=== PATIENT | female | born 1985 | race Caucasian/White ===

== ENCOUNTER 2019-03-01 12:33 | Emergency (ER) | payer SELFPAY ==
[~2019-03-01] VITALS: Ht 147.3 cm; Wt 72.6 kg
[2019-03-01 13:40] LABS: COLOR,URINE RED; GLUCOSE, URINE (UA) NEGATIVE (NEGATIVE); KETONES,URINE TRACE (NEGATIVE); PROTEIN,URINE 3+ (NEGATIVE)
[2019-03-01 13:41] LABS: CLARITY,URINE BLOODY; LEUKOCYTE ESTERASE ,URINE TRACE (NEGATIVE); NITRITE,URINE NEGATIVE (NEGATIVE)
[2019-03-01 13:42] LABS: BACTERIA,URINE FEW /HPF; BILIRUBIN,URINE 1+ (NEGATIVE); RBC,URINE TNTC /HPF
[2019-03-01] MEDS ORDERED: PHENAZOPYRIDINE 100 MG (PYRIDIUM) TABLET PO ONE (13:45)
[2019-03-01] MEDS ORDERED: NITR-65 PO (13:51)
[2019-03-01 13:58] VITALS: BP 136/91
--- NOTE | 2019-03-01 14:25 | ED Abdominal Pain ---
General Chief Complaint: [facility]ALTH BENEFITS SPECIALIST Stated Complaint: VAGINAL BLEEDING Nursing Triage Note: VAGINAL BLEEDING X 2 WEEKS, HAS NOT CONTACTED DR. HAINES. HER NORMAL MENSTRUAL CYCLE IS EVERY 2 MONTHS SHE STATES. Sepsis Screen: No Definite Risk Source of Information: Patient Exam Limitations: No Limitations History of Present Illness Date Seen by Provider: Mar 01, 2019 Time Seen by Provider: 12:10 Initial Comments Patient is a 33-year-old G10, P0 female with history of dysfunctional uterine bleeding multiple miscarriages and prior left ectopic with tubal oophorectomy who presents with vaginal bleeding for the past 2 weeks with heavy vaginal bleeding for the past several days with large clots passed the past 2 days. Patient states that she has irregular menstrual periods. Denies dizziness, lightheadedness, chest pain or shortness of breath. Does report dysuria which area. No fever chills, sweats. No pelvic and flank no other symptoms. No medications or therapies taken. Patient's has not been evaluated by her PCP her guest history clerk for her current symptoms. Timing/Duration: Getting Worse, Other (2 weeks) Severity/Quality: Moderate Radiation: No Radiation Associated Symptoms: Denies Symptoms Allergies and Home Medications Allergies Coded Allergies: strawberry (Verified Allergy, Mild, Nausea, 03/01/19) Home Medications Nitrofurantoin Monohyd/M-Cryst 100 Mg Capsule, 1 TAB PO BID Prescribed by: OLIVIA RODRÍGUEZ on 03/01/19 1351 Patient Home Medication List Home Medication List Reviewed: Yes Review of Systems Review of Systems Constitutional: see HPI EENTM: See HPI Respiratory: See HPI Cardiovascular: See HPI Gastrointestinal: See HPI Genitourinary: See HPI Musculoskeletal: see HPI Past Oyamsbd-Lmgufq-Dedewz Hx Past Med/Social Hx: Reviewed Nursing Past Med/Soc Hx Patient Social History Alcohol Use: Denies Use Recreational Drug Use: No Smoking Status: Current Everyday Smoker Type Used: Cigarettes 2nd Hand Smoke Exposure: Yes Recent Foreign Travel: No Contact w/Someone Who Travel: No Recent Infectious Disease Expo: No Recent Hopitalizations: No Physical Abuse: No Sexual Abuse: No Mistreated: No Fear: No Seasonal Allergies Seasonal Allergies: No Past Medical History Surgeries: No Respiratory: No Cardiac: No Neurological: No : No Female Reproductive Disorders: Ovarian Cyst Sexually Transmitted Disease: No HIV/AIDS: No Genitourinary: No Gastrointestinal: No Musculoskeletal: No Endocrine: No HEENT: No Cancer: No Psychosocial: No Integumentary: No Blood Disorders: No Physical Exam Vital Signs Vital Signs - First Documented 03/01/19 12:52 Temp 98.0 Pulse 85 Resp 18 B/P (MAP) 136/91 (106) Pulse Ox 95 O2 Delivery Room Air Capillary Refill : Less Than 3 Seconds Height/Weight/BMI Height: 4'10.00" Weight: 160lbs. oz. [id number]; BMI Method:Stated General Appearance: WD/WN, no apparent distress HEENT: PERRL/EOMI, normal ENT inspection Neck: non-tender, full range of motion, supple Cardiovascular: regular rate, rhythm Gastrointestinal: non tender, soft Extremities: normal range of motion, non-tender Back: normal inspection, no CVA tenderness Progress/Results/Core Measures Results/Orders Lab Results Laboratory Tests Test 03/01/19 13:20 Range/Units Urine Color RED H Urine Clarity BLOODY H Urine pH 6.0 5-9 Urine Specific Stryker 1.025 H 1.016-1.022 Urine Protein 3+ H NEGATIVE Urine Glucose (UA) NEGATIVE NEGATIVE Urine Ketones TRACE H NEGATIVE Urine Nitrite NEGATIVE NEGATIVE Urine Bilirubin 1+ H NEGATIVE Urine Urobilinogen 4.0 NORMAL MG/DL Urine Leukocyte Esterase TRACE H NEGATIVE Urine RBC (Auto) 3+ H NEGATIVE Urine RBC TNTC H /HPF Urine WBC 2-5 /HPF Urine Squamous Epithelial Cells 2-5 /HPF Urine Crystals NONE /LPF Urine Bacteria FEW H /HPF Urine Casts NONE /LPF Urine Mucus NEGATIVE /LPF Urine Culture Indicated YES Urine Test NEGATIVE NEGATIVE My Orders Orders - OLIVIA RODRÍGUEZ DO Hcg,Qualitative Urine (03/01/19 12:50) Ua Culture If Indicated (03/01/19 12:50) Phenazopyridine Tablet (Pyridium Tablet) (03/01/19 13:45) Urine Culture (03/01/19 13:20) Medications Given in ED Current Medications Medications Dose Ordered Sig/Joel Route Start Time Stop Time Status Last Admin Dose Admin Phenazopyridine HCl 200 mg ONCE ONCE PO 03/01/19 13:45 03/01/19 13:46 DC 03/01/19 13:47 200 MG Vital Signs/I&O 03/01/19 12:52 Temp 98.0 Pulse 85 Resp 18 B/P (MAP) 136/91 (106) Pulse Ox 95 O2 Delivery Room Air Blood Pressure Mean: 106 Departure Communication (Admissions) Vital signs stable. No constitutional symptoms. Urine negative. Antibiotics prescribed for dysuria. Ultrasound is not available at this facility. Patient instructed to follow up with HEALTH BENEFITS SPECIALIST for consideration of outpatient ultrasound and management of abnormal bleeding Impression Primary Impression: Dysuria Additional Impression: Dysfunctional uterine bleeding Disposition: HOME, SELF-CARE Condition: Improved Departure-Patient Inst. Add. Discharge Instructions: Please take Macrobid as directed and Azo [id number] for relief of urinary tract symptoms. Follow-up with your [facility] next 1-2 days for further evaluation. All discharge instructions reviewed with patient and/or family. Voiced understanding. Scripts Nitrofurantoin Monohyd/M-Cryst (Macrobid 100 mg Capsule) 100 Mg Capsule 1 TAB PO BID for 10 Days, #20 CAP Prov: OLIVIA RODRÍGUEZ DO 03/01/19 OLIVIA RODRÍGUEZ DO Mar 01, 2019 14:25
== END 2019-03-01 13:59 | disposition home or self-care (01) ==
LOC: ER FS 12:36
DX: N93.8 Other specified abnormal uterine and vaginal bleeding (principal); R30.0 Dysuria; F17.210 Nicotine dependence, cigarettes, uncomplicated; Z91.018 Allergy to other foods; Z90.721 Acquired absence of ovaries, unilateral
CPT/HCPCS: 81000; 84703; 87088; 99283

== ENCOUNTER 2019-03-30 12:40 | Emergency (ER) | payer SELFPAY ==
[~2019-03-30] VITALS: Ht 149.8 cm; Wt 70.0 kg
[~2019-03-30 12:40] MED LIST: NITR-65 PO
[2019-03-30] MEDS ORDERED: ASPIRIN 81 MG CHEW (CHILDREN'S ASA) PO ONE (12:45)
[2019-03-30] MEDS ORDERED: ACETAMINOPHEN 325 MG TABLET PO ONE (13:00)
[2019-03-30] MEDS ORDERED: KETOROLAC 30 MG/ML VIAL IVP ONE (13:00)
[2019-03-30 13:01] LABS: HEMATOCRIT 42 % (35-52); MEAN CORPUSCULAR HEMOGLOBIN 32 PG (25-34); MEAN CORPUSCULAR HGB CONC 33 G/DL (32-36); MEAN CORPUSCULAR VOLUME 97 FL (80-99); WHITE BLOOD COUNT 7.6 10^3/uL (4.3-11.0)
[2019-03-30 13:02] LABS: BASOPHILS % (AUTO) 0 % (0-10); EOSINOPHILS # (AUTO) 0.2 10^3/uL (0.0-0.3); EOSINOPHILS % (AUTO) 3 % (0-10); LYMPHOCYTES # (AUTO) 2.4 X 10^3 (1.0-4.0); LYMPHOCYTES % (AUTO) 31 % (12-44); MEAN PLATELET VOLUME 10.1 FL (7.4-10.4); MONOCYTES # (AUTO) 0.6 X 10^3 (0.0-1.0); MONOCYTES % (AUTO) 8 % (0-12); NEUTROPHILS # (AUTO) 4.4 X 10^3 (1.8-7.8); NEUTROPHILS % (AUTO) 58 % (42-75); PLATELET COUNT 295 10^3/uL (130-400)
--- NOTE | 2019-03-30 13:07 | ED Cardiac General ---
History of Present Illness General Chief Complaint: Chest Pain Stated Complaint: CHEST PAIN History of Present Illness Date Seen by Provider: Mar 30, 2019 Time Seen by Provider: 12:50 Initial Comments The patient is a 33-year-old female with a history of anxiety and no other chronic medical problems. She is a tobacco smoker. She presents with concern for acute on chronic chest discomfort with onset about one week ago. Discomfort localizes to a focal site over her left breast and is characterized as sharp and stabbing and nonradiating, although occasionally it will radiate to her "whole chest" when she is feeling more anxious (though not now). Pain is worse with deep breathing and with activity/movement and in particular is worse with movement of her arms. Associated mild shortness of breath at times when the pain gets worse, though not now. No associated nausea or vomiting, diaphoresis, cough, flank pain, back pain, abdominal pain, dysuria or hematuria, changes in bowel habits. Patient has had numerous prior episodes of quite similar discomfort and in fact it sounds as though she had a full cardiology evaluation completed at this hospital before the takeover by [facility] which was reportedly unremarkable. Allergies and Home Medications Allergies Coded Allergies: strawberry (Verified Allergy, Mild, Nausea, 03/01/19) Home Medications Nitrofurantoin Monohyd/M-Cryst 100 Mg Capsule, 1 TAB PO BID Prescribed by: OLIVIA RODRÍGUEZ on 03/01/19 1351 Patient Home Medication List Home Medication List Reviewed: Yes Review of Systems Review of Systems Constitutional: see HPI All Other Systems Reviewed Negative Unless Noted: Yes (Negative excepted noted.) Past Xujddze-Ujyiqt-Sgrwjm Hx Past Med/Social Hx: Reviewed Nursing Past Med/Soc Hx Patient Social History Type Used: Cigarettes 2nd Hand Smoke Exposure: Yes Recent Hopitalizations: No Physical Abuse: No Sexual Abuse: No Mistreated: No Fear: No Seasonal Allergies Seasonal Allergies: No Past Medical History Surgeries: No Respiratory: No Cardiac: No Neurological: No Female Reproductive Disorders: Ovarian Cyst Sexually Transmitted Disease: No HIV/AIDS: No Genitourinary: No Gastrointestinal: No Musculoskeletal: No Endocrine: No HEENT: No Cancer: No Psychosocial: No Integumentary: No Blood Disorders: No Family Medical History Reviewed Nursing Family Hx Physical Exam Vital Signs Vital Signs - First Documented 03/30/19 03/30/19 12:40 13:06 Temp 36.2 Pulse 72 Resp 18 B/P (MAP) 137/86 (103) Pulse Ox 98 O2 Delivery Room Air Capillary Refill : Height, Weight, BMI Height: 4'10.00" Weight: 160lbs. oz. [id number]; BMI Method:Stated General Appearance: No Apparent Distress Other comments This is a younger female appearing nontoxic and in no acute distress. Head is normocephalic and atraumatic. Neck is supple and nontender. Oropharynx is moist. Lungs are clear to auscultation in all stations. There is normal S1 and S2 without rubs or gallops and capillary refill is appropriate, less than 2 seconds globally. Abdomen is soft, nontender and nondistended. Skin is warm and dry without cyanosis, clubbing or edema. Psychiatrically, the patient demonstrates appropriate mood and affect and is alert. Progress/Results/Core Measures Results/Orders Lab Results Laboratory Tests Test 03/30/19 12:45 03/30/19 12:55 Range/Units White Blood Count 7.6 4.3-11.0 10^3/uL Red Blood Count 4.39 4.35-5.85 10^6/uL Hemoglobin 14.0 11.5-16.0 G/DL Hematocrit 42 35-52 % Mean Corpuscular Volume 97 80-99 FL Mean Corpuscular Hemoglobin 32 25-34 PG Mean Corpuscular Hemoglobin Concent 33 32-36 G/DL Red Cell Distribution Width 12.0 10.0-14.5 % Platelet Count 295 130-400 10^3/uL Mean Platelet Volume 10.1 7.4-10.4 FL Neutrophils (%) (Auto) 58 42-75 % Lymphocytes (%) (Auto) 31 12-44 % Monocytes (%) (Auto) 8 0-12 % Eosinophils (%) (Auto) 3 0-10 % Basophils (%) (Auto) 0 0-10 % Neutrophils # (Auto) 4.4 1.8-7.8 X 10^3 Lymphocytes # (Auto) 2.4 1.0-4.0 X 10^3 Monocytes # (Auto) 0.6 0.0-1.0 X 10^3 Eosinophils # (Auto) 0.2 0.0-0.3 10^3/uL Basophils # (Auto) 0.0 0.0-0.1 10^3/uL Prothrombin Time 13.2 12.2-14.7 SEC INR Comment 1.0 0.8-1.4 Activated Partial Thromboplast Time 28 24-35 SEC Sodium Level 138 135-145 MMOL/L Potassium Level 4.0 3.6-5.0 MMOL/L Chloride Level 103 98-107 MMOL/L Carbon Dioxide Level 25 21-32 MMOL/L Anion Gap 13 5-14 MMOL/L Blood Urea Nitrogen 13 7-18 MG/DL Creatinine 0.98 0.60-1.30 MG/DL Estimat Glomerular Filtration Rate > 60 BUN/Creatinine Ratio 13 Glucose Level 99 70-105 MG/DL Calcium Level 9.7 8.5-10.1 MG/DL Corrected Calcium 8.5-10.1 MG/DL Total Bilirubin 0.3 0.1-1.0 MG/DL Aspartate Amino Transf (AST/SGOT) 13 5-34 U/L Alanine Aminotransferase (ALT/SGPT) 10 0-55 U/L Alkaline Phosphatase 77 40-136 U/L Troponin I < 0.30 <0.30 NG/ML Total Protein 7.5 6.4-8.2 GM/DL Albumin 4.6 H 3.2-4.5 GM/DL Serum Test, Qualitative NEGATIVE NEGATIVE My Orders Orders - MICHAEL SAUCEDO MD Cbc With Automated Diff (03/30/19 12:42) Comprehensive Metabolic Panel (03/30/19 12:42) Troponin I (03/30/19 12:42) Ekg Tracing (03/30/19 12:42) Protime With Inr (03/30/19 12:42) Partial Thromboplastin Time (03/30/19 12:42) Chest 1 View Ap/Pa Only (03/30/19 12:42) Aspirin Chewable Tablet (Baby Aspirin Ch (03/30/19 12:45) Hcg,Qualitative Serum (03/30/19 13:00) Ketorolac Injection (Toradol Injection) (03/30/19 13:00) Acetaminophen Tablet/Caplet (Tylenol T (03/30/19 13:00) Medications Given in ED Current Medications Medications Dose Ordered Sig/Joel Route Start Time Stop Time Status Last Admin Dose Admin Acetaminophen 975 mg ONCE ONCE PO 03/30/19 13:00 03/30/19 13:02 DC 03/30/19 13:10 975 MG Aspirin 324 mg ONCE ONCE PO 03/30/19 12:45 03/30/19 12:46 DC 03/30/19 12:57 324 MG Ketorolac Tromethamine 30 mg ONCE ONCE IVP 03/30/19 13:00 03/30/19 13:02 DC 03/30/19 13:10 30 MG Vital Signs/I&O 03/30/19 03/30/19 12:40 13:06 Temp 36.2 Pulse 72 Resp 18 B/P (MAP) 137/86 (103) Pulse Ox 98 O2 Delivery Room Air Progress Progress Note : Time: 13:07 Progress Note Clinical examination reassuring. 33-year-old smoker who presents with 1 week of acute on chronic quite atypical sharp focal chest discomfort over her left breast. While there is a pleuritic component to discomfort, the patient is Wells low risk for pulmonary embolism and does PERC out. Will check labs and EKG and chest x-ray and will given aspirin as well as medication for discomfort and will then reevaluate. Discussed with the patient and her fianc that if her workup is reassuring and we will most likely be able to clear her to follow up very closely with her primary care physician in the next one-two days. I also counseled her to seek reevaluation by cardiology given episodes of discomfort similar to this one which bother her approximately every 2 weeks to 1 month and have for at least a year or more. They understand and agree with this plan of care. Update 1336: Workup unremarkable and reassuring patient feels better after medication here in the emergency department. We will discharge home with a low- dose steroid burst as well as a course of nonsteroidal anti-inflammatory. Patient is counseled to follow up very closely with her primary in the next 1-2 days and to return immediately to the emergency department if symptoms worsen or if other new symptoms of concern develop. Patient is also going to be referred back to cardiology for reevaluation given chronic chest discomfort. All questions are answered. Comment Sinus rhythm, rate 67, no acute ST elevation or depression, [place] 146, QRS 88, QTC 431, EP interpretation. Departure Impression Primary Impression: Other chest pain Disposition: HOME, SELF-CARE Condition: Improved Departure-Patient Inst. Referrals: ROBERT PINK MD (PCP/Family) Primary Care Physician Patient Instructions: Chest Pain (DC) Scripts Ibuprofen (Ibuprofen) 800 Mg Tablet 800 MG PO Q8H PRN for PAIN, #30 TAB 0 Refills Prov: MICHAEL SAUCEDO MD 03/30/19 Prednisone (Prednisone) 20 Mg Tab 20 MG PO DAILY for 6 Days, #6 TAB 0 Refills Prov: MICHAEL SAUCEDO MD 03/30/19 MICHAEL SAUCEDO MD Mar 30, 2019 13:06
[2019-03-30 13:12] LABS: PROTHROMBIN TIME PATIENT 13.2 SEC (12.2-14.7)
--- NOTE | 2019-03-30 13:17 | Diagnostic Imaging Report ---
INDICATION: Chest pain. COMPARISON: None. FINDINGS: Single frontal view of the chest demonstrates normal heart size and pulmonary vascularity. The lungs are well aerated and clear. No large pleural effusion or pneumothorax is seen. The visualized osseous structures show no acute abnormalities. IMPRESSION: 1. No acute cardiopulmonary process. Dictated by: Dictated on workstation # [id number]
[2019-03-30 13:18] LABS: ALANINE AMINOTRANSFERASE 10 U/L (0-55); ALBUMIN 4.6 GM/DL (3.2-4.5); ALKALINE PHOSPHATASE 77 U/L (40-136); BILIRUBIN,TOTAL 0.3 MG/DL (0.1-1.0); BUN/CREATININE RATIO 13; CALCIUM 9.7 MG/DL (8.5-10.1); CARBON DIOXIDE 25 MMOL/L (21-32); CHLORIDE 103 MMOL/L (98-107); CREATININE SERUM 0.98 MG/DL (0.60-1.30); GFR ESTIMATED > 60; GLUCOSE 99 MG/DL (70-105); SODIUM 138 MMOL/L (135-145); TOTAL PROTEIN 7.5 GM/DL (6.4-8.2)
[2019-03-30] MEDS ORDERED: IBUP-1780 PO (13:39)
[2019-03-30] MEDS ORDERED: PRD20T PO (13:39)
[2019-03-30 13:54] VITALS: BP 130/84
== END 2019-03-30 13:54 | disposition home or self-care (01) ==
LOC: EDUNIT# 12:40 → ER FS 12:41
DX: R07.89 Other chest pain (principal); F41.9 Anxiety disorder, unspecified; F17.210 Nicotine dependence, cigarettes, uncomplicated
CPT/HCPCS: 36415; 71045; 80053; 84484; 84703; 85025; 85610; 85730; 93005; 96374

== ENCOUNTER 2019-04-25 17:14 | Emergency (ER) | payer SELFPAY ==
[~2019-04-25] VITALS: Ht 149.9 cm; Wt 70.5 kg
[~2019-04-25 17:14] MED LIST changes: +IBUP-1780 PO; +PRD20T PO
[2019-04-25] MEDS ORDERED: NITROGLYCERIN 0.4 MG SL TABS BTL 25'S SL PRN (17:30)
[2019-04-25] MEDS ORDERED: ASPIRIN 81 MG CHEW (CHILDREN'S ASA) PO ONE (17:30)
--- NOTE | 2019-04-25 17:31 | ED Chest Pain ---
General Stated Complaint: CHEST PAIN Source: patient Exam Limitations: no limitations History of Present Illness Date Seen by Provider: Apr 25, 2019 Time Seen by Provider: 17:18 Initial Comments Patient presents to ER by private conveyance with her mother and and chief complaint for the past 3 weeks she's been experiencing some intermittent chest pain in the center of her sternum radiating around to both arms sometimes going down her left arm and into her back. She was seen 3 weeks ago and worked up and at that time they set her up with her outpatient operations manager/coordinator appointment and put her on steroids, prednisone which she completed. She was also put on bupropion by her primary care doctor, Dr. iPnk. She does not feel that the bupropion this helped much. She saw the operations manager/coordinator Dr. Gonzales from [place] and he told her that he also thought this might be stress related but set her up for a stress test May 31. She denies a history of indigestion or GERD. She has had a cough with sometimes green sputum. She denies any history of diabetes, hypertension, hyperlipidemia. Her last missed her period was one month ago. She does smoke about a quarter pack of cigarettes per day and has positive familial history for father in his late 30s having a heart attack and brother in his early 30s had a heart attack. She denies any history of IV drug use methamphetamine or cocaine. She said that the pain will come on with mild exertion such as picking up her child sweeping the floor or doing any simple chores or walking upstairs. She has tried ibuprofen for her chest pain but nothing today. She says this particular episode started about 5-10 minutes prior to arrival while picking up a child. Allergies and Home Medications Allergies Coded Allergies: strawberry (Verified Allergy, Mild, Nausea, 03/01/19) Home Medications Ibuprofen 800 Mg Tablet, 800 MG PO Q8H PRN for PAIN Prescribed by: MICHAEL SAUCEDO on 03/30/19 1339 Nitrofurantoin Monohyd/M-Cryst 100 Mg Capsule, 1 TAB PO BID Prescribed by: OLIVIA RODRÍGUEZ on 03/01/19 1351 Prednisone 20 Mg Tab, 20 MG PO DAILY Prescribed by: MICHAEL SAUCEDO on 03/30/19 1339 Patient Home Medication List Home Medication List Reviewed: Yes Review of Systems Review of Systems Constitutional: see HPI; No chills; diaphoresis; No fever EENTM: No Blurred Vision, No Double Vision Respiratory: Cough; Denies Shortness of Air, Denies Wheezing Cardiovascular: See HPI, Chest Pain; Denies Edema, Denies Irregular Heart Rate, Denies Palpitations, Denies Syncope Gastrointestinal: Denies Abdominal Pain, Denies Constipated, Denies Diarrhea, Denies Nausea Genitourinary: Denies Burning, Denies Discharge Musculoskeletal: see HPI Skin: No pruritus, No rash Past Kbhpain-Wfofvq-Kxownq Hx Patient Social History Recreational Drug Use: No Smoking Status: Current Everyday Smoker Type Used: Cigarettes (0.25 ppd) 2nd Hand Smoke Exposure: Yes Recent Hopitalizations: No Seasonal Allergies Seasonal Allergies: No Past Medical History Surgeries: No (salpingectomy) Respiratory: No Cardiac: No Neurological: No Female Reproductive Disorders: Ovarian Cyst Sexually Transmitted Disease: No HIV/AIDS: No Genitourinary: No Gastrointestinal: No Musculoskeletal: No Endocrine: No HEENT: No Cancer: No Psychosocial: No Anxiety, PTSD, Depression Integumentary: No Blood Disorders: No Physical Exam Vital Signs Vital Signs - First Documented 04/25/19 17:18 Temp 36.6 Pulse 80 Resp 25 B/P (MAP) 144/85 (104) Pulse Ox 98 O2 Delivery Room Air Capillary Refill : Height, Weight, BMI Height: 4'10.00" Weight: 160lbs. oz. 72.037479jq; 31.00 BMI Method:Stated General Appearance: WD/WN, Anxious HEENT: PERRL/EOMI, Pharynx Normal, Moist Mucous Membranes Respiratory: No Chest Non Tender (her chest pain is reproduced by direct palpation over the sternum); Lungs Clear, Normal Breath Sounds, No Accessory Muscle Use, No Respiratory Distress Cardiovascular: Regular Rate, Rhythm, No Edema, No Gallop, No JVD, No Murmur, Normal Peripheral Pulses Gastrointestinal: Non Tender, Soft Extremity: Normal Capillary Refill, Normal Inspection, No Pedal Edema Neurologic/Psychiatric: Alert, Oriented x3, No Motor/Sensory Deficits, Other (anxious affect) Skin: Normal Color, Warm/Dry Progress/Results/Core Measures Results/Orders Lab Results Laboratory Tests Test 04/25/19 17:31 04/25/19 17:35 04/25/19 20:16 Range/Units White Blood Count 8.2 4.3-11.0 10^3/uL Red Blood Count 4.23 L 4.35-5.85 10^6/uL Hemoglobin 13.6 11.5-16.0 G/DL Hematocrit 41 35-52 % Mean Corpuscular Volume 96 80-99 FL Mean Corpuscular Hemoglobin 32 25-34 PG Mean Corpuscular Hemoglobin Concent 34 32-36 G/DL Red Cell Distribution Width 12.3 10.0-14.5 % Platelet Count 266 130-400 10^3/uL Mean Platelet Volume 10.5 H 7.4-10.4 FL Neutrophils (%) (Auto) 67 42-75 % Lymphocytes (%) (Auto) 22 12-44 % Monocytes (%) (Auto) 7 0-12 % Eosinophils (%) (Auto) 4 0-10 % Basophils (%) (Auto) 1 0-10 % Neutrophils # (Auto) 5.5 1.8-7.8 X 10^3 Lymphocytes # (Auto) 1.8 1.0-4.0 X 10^3 Monocytes # (Auto) 0.5 0.0-1.0 X 10^3 Eosinophils # (Auto) 0.4 H 0.0-0.3 10^3/uL Basophils # (Auto) 0.0 0.0-0.1 10^3/uL Prothrombin Time 13.2 12.2-14.7 SEC INR Comment 1.0 0.8-1.4 Activated Partial Thromboplast Time 28 24-35 SEC Sodium Level 141 135-145 MMOL/L Potassium Level 4.2 3.6-5.0 MMOL/L Chloride Level 104 98-107 MMOL/L Carbon Dioxide Level 24 21-32 MMOL/L Anion Gap 13 5-14 MMOL/L Blood Urea Nitrogen 9 7-18 MG/DL Creatinine 1.01 0.60-1.30 MG/DL Estimat Glomerular Filtration Rate > 60 BUN/Creatinine Ratio 9 Glucose Level 103 70-105 MG/DL Calcium Level 9.5 8.5-10.1 MG/DL Corrected Calcium 9.2 8.5-10.1 MG/DL Magnesium Level 2.0 1.6-2.4 MG/DL Total Bilirubin 0.3 0.1-1.0 MG/DL Aspartate Amino Transf (AST/SGOT) 14 5-34 U/L Alanine Aminotransferase (ALT/SGPT) 9 0-55 U/L Alkaline Phosphatase 78 40-136 U/L Myoglobin 42.3 10.0-92.0 NG/ML Troponin I < 0.30 < 0.30 <0.30 NG/ML Total Protein 7.3 6.4-8.2 GM/DL Albumin 4.4 3.2-4.5 GM/DL Urine Color YELLOW Urine Clarity CLEAR Urine pH 5.5 5-9 Urine Specific [place] >1.030 1.016-1.022 Urine Protein NEGATIVE NEGATIVE Urine Glucose (UA) NEGATIVE NEGATIVE Urine Ketones NEGATIVE NEGATIVE Urine Nitrite NEGATIVE NEGATIVE Urine Bilirubin NEGATIVE NEGATIVE Urine Urobilinogen 0.2 NORMAL MG/DL Urine Leukocyte Esterase NEGATIVE NEGATIVE Urine RBC (Auto) TRACE H NEGATIVE Urine RBC 2-5 H /HPF Urine WBC NONE /HPF Urine Squamous Epithelial Cells >50 H /HPF Urine Crystals NONE /LPF Urine Bacteria FEW H /HPF Urine Casts NONE /LPF Urine Mucus SMALL H /LPF Urine Culture Indicated NO Urine Opiates Screen NEGATIVE NEGATIVE Urine Oxycodone Screen NEGATIVE NEGATIVE Urine Methadone Screen NEGATIVE NEGATIVE Urine Propoxyphene Screen NEGATIVE NEGATIVE Urine Barbiturates Screen NEGATIVE NEGATIVE Ur Tricyclic Antidepressants Screen NEGATIVE NEGATIVE Urine Phencyclidine Screen NEGATIVE NEGATIVE Urine Amphetamines Screen NEGATIVE NEGATIVE Urine Methamphetamines Screen NEGATIVE NEGATIVE Urine Benzodiazepines Screen NEGATIVE NEGATIVE Urine Cocaine Screen NEGATIVE NEGATIVE Urine Cannabinoids Screen POSITIVE H NEGATIVE Group A Streptococcus Screen NEGATIVE NEGATIVE My Orders Orders - MIRA RIVAS J Ekg Tracing (04/25/19 17:18) Continuous Ekg Monitoring (04/25/19 17:18) Cbc With Automated Diff (04/25/19 17:28) Magnesium (04/25/19 17:28) Comprehensive Metabolic Panel (04/25/19 17:28) Myoglobin Serum (04/25/19 17:28) Protime With Inr (04/25/19 17:28) Partial Thromboplastin Time (04/25/19 17:28) O2 (04/25/19 17:28) Lipid Panel (04/26/19 06:00) Aspirin Chewable Tablet (Baby Aspirin Ch (04/25/19 17:30) Nitroglycerin 0.4 Mg Btl 25's (Nitrostat (04/25/19 17:30) Ed Iv/Invasive Line Start (04/25/19 17:28) Troponin I Fs (04/25/19 17:28) Chest Pa/Lat (2 View) (04/25/19 17:28) Rapid Strep A Screen (04/25/19 17:28) Ua Culture If Indicated (04/25/19 17:31) Urine Bedside (04/25/19 17:31) Drug Screen Stat (Urine) (04/25/19 17:31) Ketorolac Injection (Toradol Injection) (04/25/19 18:15) Troponin I Fs (04/25/19 20:00) Medications Given in ED Current Medications Medications Dose Ordered Sig/Joel Route Start Time Stop Time Status Last Admin Dose Admin Aspirin 324 mg ONCE ONCE PO 04/25/19 17:30 04/25/19 17:31 DC 04/25/19 17:42 324 MG Ketorolac Tromethamine 30 mg ONCE ONCE IVP 04/25/19 18:15 04/25/19 18:16 DC 04/25/19 18:18 30 MG Nitroglycerin 0.4 mg UD PRN SL 04/25/19 17:30 04/25/19 17:43 0.4 MG Vital Signs/I&O 04/25/19 04/25/19 17:18 17:18 Temp 36.6 Pulse 80 Resp 25 B/P (MAP) 144/85 (104) Pulse Ox 98 O2 Delivery Room Air Room Air Progress Progress Note #1: Time: 17:37 Progress Note Plan to give aspirin and nitroglycerin trial. Her chest pain is reproducible to direct palpation which seems more in line with chest wall pain/musculoskeletal/pleuritic. With her cough it would be peters to get a 2 view chest x-ray to evaluate for bronchitis/pneumonia. She appears very anxious on presentation. She is not hypoxic nor does she claims shortness of breath. She is not tachycardic with a heart rate in the 80s and oxygen saturation of 100% on room air. Well score 0 points. She is not on control although she does smoke which is a risk factor. Myocarditis/pericarditis seems less likely to go on for 3-4 weeks but is a possibility as well. She says several people have strep throat in her household so she would like us to swab her throat for rapid strep screen. Progress Note #2: Time: 17:58 Progress Note Her chest pain is still a 6 out of 10 and was untouched by nitroglycerin. We'll offer her Toradol if her troponin is normal. Heart score is 1 point if her troponin is negative. Low risk; 0.91.7% 30-day MACE. Repeat troponin at 3 hours and if negative, discharge home with outpatient follow-up Initial ECG Impression Date: Apr 25, 2019 Initial ECG Impression Time: 17:19 Initial ECG Rate: 91 Initial ECG Rhythm: Normal Sinus Initial ECG Intervals: Normal Initial ECG Impression: Normal Initial ECG Comparisson: Unchanged Comment Normal sinus rhythm without ST elevation or depression. Diagnostic Imaging Diagonstic Imaging: Xray Plain Films/CT/US/NM/MRI: chest (2v) Comments No acute cardiopulmonary process noted. Two-view chest. NAME: ANGELES NAVARRO [facility] REC#: [id number] PT STATUS: REG ER : 1985 PHYSICIAN: MIRA RIVAS MD ADMIT DATE: 04/25/19/ER FS Draft Date of Exam:04/25/19 CHEST PA/LAT (2 VIEW) CLINICAL INDICATION: Patient with left arm numbness and pain. Patient also has chest pain. EXAM: Chest x-ray PA and lateral views. COMPARISONS: Chest x-ray dated 03/30/2019. FINDINGS: Lungs/pleura: Lungs are clear. There is no pneumothorax. There is no pleural effusion. Mediastinum: Unremarkable. Pulmonary vasculature: Unremarkable. Heart: Unremarkable. Bones/extrathoracic soft tissue: Unremarkable. IMPRESSION: There is no radiographic evidence of acute cardiopulmonary process. Dictated on workstation # [id number] Dict: 04/25/19 1750 Trans: 04/25/19 1800 AS6 [id number] Interpreted by: CHUCK SPENCER MD Electronically signed by: Reviewed: Reviewed by Me Departure Impression Primary Impression: Costal chondritis Disposition: 01 HOME, SELF-CARE Condition: Stable Departure-Patient Inst. Decision time for Depature: 20:55 Referrals: ROBERT PINK MD (PCP/Family) Primary Care Physician Patient Instructions: Costochondritis (DC) Add. Discharge Instructions: Naprosyn one tablet twice a day for the next 2 weeks. Tylenol 1000 g every 8 hours as needed for pain. Keep your follow-up appointment with primary care and cardiology. Scripts Naproxen (Naprosyn) 500 Mg Tablet 500 MG PO BID for 14 Days, #30 TAB 0 Refills Prov: MIRA RIVAS 04/25/19 MIRA RIVAS Apr 25, 2019 17:31
[2019-04-25 17:42] LABS: WHITE BLOOD COUNT 8.2 10^3/uL (4.3-11.0)
[2019-04-25 17:43] LABS: BASOPHILS % (AUTO) 1 % (0-10); EOSINOPHILS # (AUTO) 0.4 10^3/uL (0.0-0.3); EOSINOPHILS % (AUTO) 4 % (0-10); HEMATOCRIT 41 % (35-52); HEMOGLOBIN 13.6 G/DL (11.5-16.0); LYMPHOCYTES # (AUTO) 1.8 X 10^3 (1.0-4.0); LYMPHOCYTES % (AUTO) 22 % (12-44); MEAN CORPUSCULAR HEMOGLOBIN 32 PG (25-34); MEAN CORPUSCULAR HGB CONC 34 G/DL (32-36); MEAN CORPUSCULAR VOLUME 96 FL (80-99); MEAN PLATELET VOLUME 10.5 FL (7.4-10.4); MONOCYTES # (AUTO) 0.5 X 10^3 (0.0-1.0); MONOCYTES % (AUTO) 7 % (0-12); NEUTROPHILS # (AUTO) 5.5 X 10^3 (1.8-7.8); NEUTROPHILS % (AUTO) 67 % (42-75); PLATELET COUNT 266 10^3/uL (130-400); RED CELL DISTRIBUTION WIDTH 12.3 % (10.0-14.5)
[2019-04-25 17:46] LABS: CLARITY,URINE CLEAR; COLOR,URINE YELLOW; PH,URINE 5.5 (5-9)
[2019-04-25 17:47] LABS: BACTERIA,URINE FEW /HPF; BILIRUBIN,URINE NEGATIVE (NEGATIVE); GLUCOSE, URINE (UA) NEGATIVE (NEGATIVE); KETONES,URINE NEGATIVE (NEGATIVE); LEUKOCYTE ESTERASE ,URINE NEGATIVE (NEGATIVE); NITRITE,URINE NEGATIVE (NEGATIVE); PROTEIN,URINE NEGATIVE (NEGATIVE); SQUAMOUS EPITHELIAL CELL,UR >50 /HPF
[2019-04-25 17:52] LABS: PROTHROMBIN TIME PATIENT 13.2 SEC (12.2-14.7)
[2019-04-25 17:53] LABS: AMPHETAMINE SCREEN, URINE NEGATIVE (NEGATIVE); BARBITURATE SCREEN URINE NEGATIVE (NEGATIVE); BENZODIAZEPINES SCREEN URINE NEGATIVE (NEGATIVE); CANNABINOID SCREEN, URINE POSITIVE (NEGATIVE); COCAINE SCREEN URINE NEGATIVE (NEGATIVE); METHADONE STAT NEGATIVE (NEGATIVE); METHAMPHETAMINE SCREEN URINE S NEGATIVE (NEGATIVE); OPIATE SCREEN URINE NEGATIVE (NEGATIVE); OXYCODONE STAT NEGATIVE (NEGATIVE); PROPOXYPHENE STAT NEGATIVE (NEGATIVE); TRICYCLIC ANTIDEPRESSANTS SCRE NEGATIVE (NEGATIVE)
--- NOTE | 2019-04-25 17:58 | NUR ---
Patient reports her pain has not changed after the first dose of nitro. Dr. Ventura notified.
--- NOTE | 2019-04-25 18:00 | Diagnostic Imaging Report ---
CLINICAL INDICATION: Patient with left arm numbness and pain. Patient also has chest pain. EXAM: Chest x-ray PA and lateral views. COMPARISONS: Chest x-ray dated 03/30/2019. FINDINGS: Lungs/pleura: Lungs are clear. There is no pneumothorax. There is no pleural effusion. Mediastinum: Unremarkable. Pulmonary vasculature: Unremarkable. Heart: Unremarkable. Bones/extrathoracic soft tissue: Unremarkable. IMPRESSION: There is no radiographic evidence of acute cardiopulmonary process. Dictated by: Dictated on workstation # [id number]
[2019-04-25 18:02] LABS: CARBON DIOXIDE 24 MMOL/L (21-32); CHLORIDE 104 MMOL/L (98-107); POTASSIUM 4.2 MMOL/L (3.6-5.0); SODIUM 141 MMOL/L (135-145)
[2019-04-25 18:03] LABS: ALANINE AMINOTRANSFERASE 9 U/L (0-55); ALBUMIN 4.4 GM/DL (3.2-4.5); ALKALINE PHOSPHATASE 78 U/L (40-136); BILIRUBIN,TOTAL 0.3 MG/DL (0.1-1.0); BUN/CREATININE RATIO 9; CALCIUM 9.5 MG/DL (8.5-10.1); CREATININE SERUM 1.01 MG/DL (0.60-1.30); GFR ESTIMATED > 60; GLUCOSE 103 MG/DL (70-105); TOTAL PROTEIN 7.3 GM/DL (6.4-8.2)
[2019-04-25] MEDS ORDERED: KETOROLAC 30 MG/ML VIAL IVP ONE (18:15)
[2019-04-25] MEDS ORDERED: NAPR-1071 PO (20:56)
[2019-04-25 21:06] VITALS: BP 129/71
== END 2019-04-25 21:05 | disposition home or self-care (01) ==
LOC: EDUNIT# 17:14 → ER FS 17:15
DX: M94.0 Chondrocostal junction syndrome [Tietze] (principal); F43.10 Post-traumatic stress disorder, unspecified; F41.9 Anxiety disorder, unspecified; F32.9 Major depressive disorder, single episode, unspecified; F17.210 Nicotine dependence, cigarettes, uncomplicated
CPT/HCPCS: 36415; 71046; 80053; 80306; 81000; 83735; 83874; 84484; 84703; 85025; 85610; 85730; 87430; 93005

== ENCOUNTER 2021-10-07 01:45 | Emergency (ER) | payer SELFPAY ==
[~2021-10-07] VITALS: Ht 147.3 cm; Wt 77.6 kg
[~2021-10-07 01:45] MED LIST changes: +NAPR-1071 PO
[2021-10-07 02:09] LABS: BASOPHILS % (AUTO) 0 % (0-10); EOSINOPHILS # (AUTO) 0.2 10^3/uL (0.0-0.3); EOSINOPHILS % (AUTO) 2 % (0-10); HEMATOCRIT 42 % (35-52); LYMPHOCYTES % (AUTO) 24 % (12-44); MEAN CORPUSCULAR HEMOGLOBIN 32 pg (25-34); MEAN CORPUSCULAR HGB CONC 34 g/dL (32-36); MEAN CORPUSCULAR VOLUME 95 fL (80-99); MEAN PLATELET VOLUME 10.1 fL (9.0-12.2); MONOCYTES # (AUTO) 0.8 10^3/uL (0.0-1.0); MONOCYTES % (AUTO) 6 % (0-12); NEUTROPHILS # (AUTO) 8.5 10^3/uL (1.8-7.8); NEUTROPHILS % (AUTO) 67 % (42-75); PLATELET COUNT 318 10^3/uL (130-400); WHITE BLOOD COUNT 12.7 10^3/uL (4.3-11.0)
--- NOTE | 2021-10-07 02:11 | ED Chest Pain ---
General Chief Complaint: Chest Pain Stated Complaint: CHEST PAIN Source: patient Exam Limitations: no limitations History of Present Illness Date Seen by Provider: Oct 07, 2021 Time Seen by Provider: 01:54 Initial Comments 36-year-old female with no significant past medical history coming in due to moderate, constant, sharp, midsternal chest pain that is been going on for a few hours now. She says she had the same thing occur couple years ago, and was told that potentially anxiety related after they did a work-up. She said she took ibuprofen when the pain started tonight and that helped somewhat. Denies any prior history of a DVT or PE, no recent surgeries, no recent long travel, no hormone usage, no hemoptysis, no shortness of breath, abdominal pain, nausea, vomiting, diarrhea, fever, chills, weakness, numbness, cough, rash, or any other concerns. Allergies and Home Medications Allergies Coded Allergies: strawberry (Verified Allergy, Mild, Nausea, 03/01/19) Patient Home Medication List Home Medication List Reviewed: Yes No Active Prescriptions or Reported Meds Review of Systems Review of Systems Constitutional: No chills, No fever EENTM: No Blurred Vision Respiratory: Denies Cough, Denies Shortness of Air Cardiovascular: Chest Pain Gastrointestinal: Denies Abdominal Pain, Denies Diarrhea, Denies Nausea, Denies Vomiting Genitourinary: No Symptoms Reported Musculoskeletal: no symptoms reported Skin: no symptoms reported Psychiatric/Neurological: No Symptoms Reported Endocrine: No Symptoms Reported Hematologic/Lymphatic: No Symptoms Reported All Other Systems Reviewed Negative Unless Noted: Yes Past Rnycxrv-Eerrzr-Fjsnmz Hx Patient Social History Tobacco Use?: Yes Seasonal Allergies Seasonal Allergies: No Past Medical History Surgeries: Yes (salpingectomy) Respiratory: No Cardiac: No Neurological: No Female Reproductive Disorders: Ovarian Cyst Sexually Transmitted Disease: No HIV/AIDS: No Genitourinary: No Gastrointestinal: No Musculoskeletal: No Endocrine: No HEENT: No Cancer: No Psychosocial: No Anxiety, PTSD, Depression Integumentary: No Blood Disorders: No Physical Exam Vital Signs Vital Signs - First Documented 10/07/21 01:45 Temp 36.1 Pulse 85 Resp 24 B/P (MAP) 155/94 (114) Pulse Ox 100 O2 Delivery Room Air Capillary Refill : Height, Weight, BMI Height: 4'10.00" Weight: 160lbs. oz. 72.121397ss; 31.00 BMI Method:Stated General Appearance: No Apparent Distress, WD/WN HEENT: PERRL/EOMI, Normal ENT Inspection, Pharynx Normal Neck: Full Range of Motion, Normal Inspection, Non Tender, Supple Respiratory: Chest Non Tender, Lungs Clear, Normal Breath Sounds, No Accessory Muscle Use, No Respiratory Distress Cardiovascular: Regular Rate, Rhythm, No Edema, Normal Peripheral Pulses Gastrointestinal: Normal Bowel Sounds, Non Tender, Soft; No Distended, No Guarding Extremity: Normal Capillary Refill, Normal Inspection, Normal Range of Motion, Non Tender, No Calf Tenderness, No Pedal Edema Neurologic/Psychiatric: Alert, No Motor/Sensory Deficits, Normal Mood/Affect Skin: Normal Color, Warm/Dry Lymphatic: No Adenopathy Progress/Results/Core Measures Results/Orders Lab Results Laboratory Tests Test 10/07/21 01:55 Range/Units White Blood Count 12.7 H 4.3-11.0 10^3/uL Red Blood Count 4.37 3.80-5.11 10^6/uL Hemoglobin 14.0 11.5-16.0 g/dL Hematocrit 42 35-52 % Mean Corpuscular Volume 95 80-99 fL Mean Corpuscular Hemoglobin 32 25-34 pg Mean Corpuscular Hemoglobin Concent 34 32-36 g/dL Red Cell Distribution Width 12.6 10.0-14.5 % Platelet Count 318 130-400 10^3/uL Mean Platelet Volume 10.1 9.0-12.2 fL Immature Granulocyte % (Auto) 1 % Neutrophils (%) (Auto) 67 42-75 % Lymphocytes (%) (Auto) 24 12-44 % Monocytes (%) (Auto) 6 0-12 % Eosinophils (%) (Auto) 2 0-10 % Basophils (%) (Auto) 0 0-10 % Neutrophils # (Auto) 8.5 H 1.8-7.8 10^3/uL Lymphocytes # (Auto) 3.0 1.0-4.0 10^3/uL Monocytes # (Auto) 0.8 0.0-1.0 10^3/uL Eosinophils # (Auto) 0.2 0.0-0.3 10^3/uL Basophils # (Auto) 0.0 0.0-0.1 10^3/uL Immature Granulocyte # (Auto) 0.1 0.0-0.1 10^3/uL Prothrombin Time 12.2 12.2-14.7 SEC INR Comment 0.9 0.8-1.4 Activated Partial Thromboplast Time 26 24-35 SEC Sodium Level 137 135-145 MMOL/L Potassium Level 4.0 3.6-5.0 MMOL/L Chloride Level 101 98-107 MMOL/L Carbon Dioxide Level 26 21-32 MMOL/L Anion Gap 10 5-14 MMOL/L Blood Urea Nitrogen 13 7-18 MG/DL Creatinine 1.12 0.60-1.30 MG/DL Estimat Glomerular Filtration Rate 65 BUN/Creatinine Ratio 12 Glucose Level 117 H 70-105 MG/DL Calcium Level 9.1 8.5-10.1 MG/DL Corrected Calcium 8.8 8.5-10.1 MG/DL Magnesium Level 2.3 1.6-2.4 MG/DL Total Bilirubin 0.3 0.1-1.0 MG/DL Aspartate Amino Transf (AST/SGOT) 72 H 5-34 U/L Alanine Aminotransferase (ALT/SGPT) 33 0-55 U/L Alkaline Phosphatase 112 40-136 U/L Troponin I < 0.30 <0.30 NG/ML Total Protein 7.2 6.4-8.2 GM/DL Albumin 4.4 3.2-4.5 GM/DL Lipase 41 8-78 U/L My Orders Orders - TORI BARTLETT MD Cbc With Automated Diff (10/07/21 02:00) Magnesium (10/07/21 02:00) Chest 1 View Ap/Pa Only (10/07/21 02:00) Ekg Tracing (10/07/21 02:00) Comprehensive Metabolic Panel (10/07/21 02:00) Protime With Inr (10/07/21 02:00) Partial Thromboplastin Time (10/07/21 02:00) O2 (10/07/21 02:00) Monitor-Rhythm Ecg Trace Only (10/07/21 02:00) Ed Iv/Invasive Line Start (10/07/21 02:00) Troponin I Fs (10/07/21 02:00) Lipase (10/07/21 02:01) Lidocaine 2% Viscous 15 Ml (Xylocaine Vi (10/07/21 02:15) Antacid Suspension (Mylanta Suspension (10/07/21 02:15) Hydroxyzine Cap/Tab (Vistaril) (10/07/21 02:15) Acetaminophen Tablet (Tylenol Tablet) (10/07/21 02:15) Medications Given in ED Current Medications Medications Dose Ordered Sig/Joel Route Start Time Stop Time Status Last Admin Dose Admin Acetaminophen 1,000 mg ONCE ONCE PO 10/07/21 02:15 10/07/21 02:16 DC 10/07/21 02:18 1,000 MG Al Hydrox/Mg Hydrox/Simethicone 30 ml ONCE ONCE PO 10/07/21 02:15 10/07/21 02:16 DC 10/07/21 02:18 30 ML Hydroxyzine Pamoate 25 mg ONCE ONCE PO 10/07/21 02:15 10/07/21 02:16 DC 10/07/21 02:18 25 MG Lidocaine HCl 15 ml ONCE ONCE PO 10/07/21 02:15 10/07/21 02:16 DC 10/07/21 02:18 15 ML Vital Signs/I&O 10/07/21 01:45 Temp 36.1 Pulse 85 Resp 24 B/P (MAP) 155/94 (114) Pulse Ox 100 O2 Delivery Room Air Progress Progress Note : Progress Note 36-year-old female coming in due to chest pain. ABCs were intact and vitals were stable on presentation. Physical exam reassuring and no focal abnormalities. EKG with no ischemic changes. An IV was placed and basic labs including cardiac biomarkers were obtained. These were all reassuring. Chest x-ray obtained and interpreted by me showing no pneumothorax, normal cardiac silhouette, no obvious pneumonia. She was given a GI cocktail with significant improvement in her symptoms. Her heart score is 1 for smoking, and given the constant chest pain for several hours, negative troponin is sufficient. She is low risk for a PE per Isabella criteria, and is PERC negative. POC ultrasound obtained by me showing no pericardial effusion, normal EF, and normal bilateral lung sliding making a pneumothorax unlikely. I believe she is stable for discharge with outpatient follow-up. She was sent home with strict return precautions. Initial ECG Impression Date: Oct 07, 2021 Initial ECG Impression Time: 01:54 Initial ECG Rate: 85 Initial ECG Rhythm: Normal Sinus Comment Narrow QRS, normal axis, no significant ST changes or T wave abnormalities Diagnostic Imaging Diagonstic Imaging: Xray (chest) Comments Interpreted by me showing no pneumothorax, obvious pneumonia, and normal cardiac silhouette Departure Impression Primary Impression: Chest pain Qualified Codes: R07.9 - Chest pain, unspecified Disposition: 01 HOME, SELF-CARE Condition: Stable Departure-Patient Inst. Decision time for Depature: 02:35 Referrals: ROBERT PINK MD (PCP/Family) Primary Care Physician Patient Instructions: Chest Pain That Is Not Caused by the Heart (DC) Add. Discharge Instructions: It does not appear like you are having any type of heart attack. Your chest x- ray also looks clear. Continue to take ibuprofen and/or Tylenol as needed for chest discomfort. If you become severely short of breath, or the chest pain becomes very severe you can always come back to the ER. Please follow-up with your regular doctor in the next several days if things are not improving. Scripts No Active Prescriptions or Reported Meds Work/School Note: Work Release Form Date Seen in the Emergency Department: Oct 07, 2021 Return to Work: Oct 08, 2021 Restrictions: No Restrictions TORI BARTLETT MD Oct 07, 2021 02:11
[2021-10-07] MEDS ORDERED: ANTACID SUSP 30 ML UDC (MYLANTA) PO ONE (02:15)
[2021-10-07] MEDS ORDERED: hydrOXYzine (VISTARIL/ATARAX) 25 MG capsule/tablet PO ONE (02:15)
[2021-10-07] MEDS ORDERED: LIDOCAINE 2% VISCOUS 15 ML UDC PO ONE (02:15)
[2021-10-07] MEDS ORDERED: ACETAMINOPHEN 500 MG TAB (TYLENOL) PO ONE (02:15)
[2021-10-07 02:16] LABS: INR 0.9 (0.8-1.4); PROTHROMBIN TIME PATIENT 12.2 SEC (12.2-14.7)
[2021-10-07 02:29] LABS: LIPASE 41 U/L (8-78)
[2021-10-07 02:30] LABS: ALBUMIN 4.4 GM/DL (3.2-4.5); BILIRUBIN,TOTAL 0.3 MG/DL (0.1-1.0); CALCIUM 9.1 MG/DL (8.5-10.1); CREATININE SERUM 1.12 MG/DL (0.60-1.30); MAGNESIUM 2.3 MG/DL (1.6-2.4); TOTAL PROTEIN 7.2 GM/DL (6.4-8.2)
[2021-10-07 02:40] VITALS: BP 151/74
--- NOTE | 2021-10-07 06:35 | Diagnostic Imaging Report ---
Indication: Chest pain. Comparison: 04/25/2019. Discussion: Single portable upright view of the chest was obtained. Stable normal heart size. No consolidation, pleural fluid, or pneumothorax. No osseous abnormality. Impression: 1. Negative chest. Dictated by: Dictated on workstation # [id number]
== END 2021-10-07 02:40 | disposition home or self-care (01) ==
LOC: EDUNIT# 01:45 → ER FS 01:50
DX: R07.9 Chest pain, unspecified (principal); Z72.0 Tobacco use
CPT/HCPCS: 36415; 71045; 80053; 83690; 83735; 84484; 85025; 85610; 85730; 93005; 93041